=== PATIENT | female | born 1985 | race Caucasian/White ===

== ENCOUNTER 2017-04-27 06:10 | Day surgery (SDC) | payer OTHER ==
[~2017-04-27] VITALS: Ht 144.8 cm; Wt 54.0 kg
[~2017-04-27 06:10] MED LIST: ACET500C5 PO; CIPR500T4 PO; CYCL-319 PO; HYDR-3498 PO; HYDR-3720 PO; HYDR-906 PO; IBUP-1542 PO; IBUP800T25 PO; METH750T93 PO; METR500T PO; PHEN-538 PO
[2017-04-27 06:37] VITALS: Ht 144.8 cm; Wt 54.0 kg
[2017-04-27] MEDS ORDERED: BIRTH CONTROL (06:43)
[2017-04-27 07:17] VITALS: BP 109/75; PULSE 62; RESP 18
--- NOTE | 2017-04-27 07:40 | OPPN ---
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
[2017-04-27] MEDS ORDERED: FENTAnyl 50 MCG/ML VIAL ONE (08:42)
[2017-04-27] MEDS ORDERED: MIDAZOLAM 1 MG/ML 2 ML INJ ONE (08:43)
--- NOTE | 2017-04-27 09:12 | GILP ---
DATE OF PROCEDURE: 04/27/2017 NAME OF PROCEDURES: Esophagogastroduodenoscopy and biopsy. SURGEON: Lele Bridges MD PREOPERATIVE DIAGNOSES: 1. Abdominal pain. 2. Chronic heartburn. POSTOPERATIVE DIAGNOSES: 1. Small hiatal hernia. 2. Gastroesophageal reflux disease. 3. Gastritis with erosions. 4. Biopsy was positive for Helicobacter pylori infection. INDICATION FOR THE PROCEDURE: Ms. Adilene Diaz is a 31-year-old female patient who had upper abdomina l pain and chronic heartburn, not responding to therapy. The patient was scheduled for endoscopic e xamination for further evaluation. The procedure and possible complications are well explained to the patient, she understood and conse nted to the procedure. DESCRIPTION OF PROCEDURE: Under the influence of fentanyl and Versed, the gastroscope was carefully introduced into the esophagus and under direct vision it was advanced to the stomach and through th e pylorus into the duodenal bulb and descending duodenum. FINDINGS: ESOPHAGUS: The patient had small hiatal hernia and gastroesophageal reflux disease. STOMACH: The patient had gastritis with erosions. Gastric mucosal biopsies were taken for H. pylor i test. DUODENUM: Normal. The patient tolerated the procedure very well and there was no complication from the procedure. At the end of the procedure, she was awake with stable vital signs and she was discharged home to the [facility] of her family. IMPRESSION: Please see postoperative diagnoses. PLAN: 1. Zantac 300 mg p.o. b.i.d. for 14 days. 2. Doxycycline 100 mg p.o. b.i.d. for 14 days. 3. Flagyl 500 mg p.o. b.i.d. for 14 days. 4. Pepto-Bismol 2 tablets p.o. q.i.d. for 14 days. Dictated By: LELE BOOTH/FRANCISCO Conf#: [id number] DID#: [id number]
--- NOTE | 2017-04-28 11:44 | CONS ---
DATE OF ADMISSION: 04/27/2017 DATE OF CONSULTATION: PREOPERATIVE GASTROENTEROLOGY CONSULTATION NOTE I thank you very much for this kind referral. HISTORY OF PRESENT ILLNESS: Ms. Adilene Gamble is a 31-year-old female patient who has been referred to me for further evaluation of epigastric pain and chronic heartburn not responding to therapy. The patient had abdominal ultrasound and CT scan done, and according to her, they were normal. No past history of peptic ulcer disease. She is not taking any nonsteroidal anti-inflammatory agents. Her appetite has been good and there is no weight loss. No history of gallstones or liver disease. No change in the bowel habit or rectal bleeding. No history of inflammatory bowel disease. Not a hype rtensive or diabetic. No heart disease or lung problem, or kidney disease. She is a smoker. No al cohol abuse. No family history of gastrointestinal tract neoplasm. She is on control pills. NO DRUG ALLERGIES. MEDICATIONS: control pills. PHYSICAL EXAMINATION: VITAL SIGNS: She is 5 feet tall and she weighs 120 pounds. HEART: Normal heart sounds. LUNGS: Clear. ABDOMEN: Soft. No masses. Normal bowel sounds. NEUROLOGIC: Normal neurological exam. IMPRESSION: 1. Upper abdominal pain and chronic heartburn not responding to therapy. 2. The patient states she had abdominal ultrasound and CT scan done, and they were normal. 3. The patient is on control pills. 4. The patient is a smoker. PLAN: 1. Advised strongly to stop smoking. 2. Endoscopic examination for further evaluation. The procedure and possible complications were well explained to the patient, she understands and con sents to the procedure. I thank you once again. With warmest personal regards, Dictated By: LELE BOOTH/FRANCISCO Conf#: [id number] DID#: [id number]
== END 2017-04-27 10:52 | disposition home or self-care (01) ==
LOC: GIL 06:10
PROVIDERS: ATTEND Internal Medicine Gastroenterology
DX: B96.81 Helicobacter pylori [H. pylori] as the cause of diseases classified elsewhere (principal); K44.9 Diaphragmatic hernia without obstruction or gangrene; K21.9 Gastro-esophageal reflux disease without esophagitis; K29.60 Other gastritis without bleeding; F17.200 Nicotine dependence, unspecified, uncomplicated
CPT/HCPCS: 43239; 84703; J2250; J3010; Z7610